=== PATIENT | female | born 1960 | race Caucasian/White ===

== ENCOUNTER 2022-03-17 12:37 | Emergency (ER) | payer MEDICAID ==
[~2022-03-17] VITALS: Ht 167.6 cm; Wt 57.2 kg
[2022-03-17] MEDS ORDERED: NITROGLYCERIN 0.4 MG/TAB BOTTLE SL ONE ×2 (13:00→13:11)
[2022-03-17] MEDS ORDERED: ASPIRIN 325 MG TABLET PO ONE (13:00)
[2022-03-17] MEDS ORDERED: ONDANSETRON 4 MG/2 ML VIAL IV ONE (13:00)
[2022-03-17] MEDS ORDERED: ASPIRIN 325 MG TABLET ONE (13:12)
[2022-03-17] MEDS ORDERED: ONDANSETRON 4 MG/2 ML VIAL ONE (13:12)
[2022-03-17 13:14] LABS: HEMATOCRIT 36.9 % (31.2-41.9); MEAN CORPUSCULAR HEMOGLOBIN 33.6 uug (24.7-32.8); MEAN CORPUSCULAR VOLUME 98.3 fL (75.5-95.3); PLATELET COUNT (AUTO) 251 K/uL (179-408)
[2022-03-17 13:33] LABS: CARBON DIOXIDE 29 mmol/L (21-32); CHLORIDE 101 mmol/L (98-107); CREATININE 1.1 mg/dL (0.6-1.3); GLUCOSE 134 mg/dL (74-106); UREA NITROGEN, BLOOD 14 mg/dL (7-18)
[2022-03-17] MEDS ORDERED: KETOROLAC TROMETHAMINE 15 MG INJ IVP ONE (14:15)
[2022-03-17] MEDS ORDERED: KETOROLAC TROMETHAMINE 15 MG INJ ONE (14:51)
--- NOTE | 2022-03-17 16:33 | NUR ---
Patient discharged to home in stable condition. Written and verbal after care instructions given. Patient verbalizes understanding of instructions. Stressed follow up or return to ER for worsening s/s.
--- NOTE | 2022-03-17 16:33 | NUR ---
IV removed. Catheter intact and site benign. Pressure and 4x4 gauze applied to site. No bleeding noted.
[2022-03-17 16:34] VITALS: BP 112/80
== END 2022-03-17 16:34 | disposition home or self-care (01) ==
LOC: ER 12:37
DX: R07.89 Other chest pain (principal); M54.89 Other dorsalgia; Z88.0 Allergy status to penicillin; M62.830 Muscle spasm of back
CPT/HCPCS: 99285; 96374; 71045; 96375; 80048; 83880; 85025; 84484 ×2; 36415; 93005; J1885; J2405; A4663